=== PATIENT | male | born 1980 | race Two or more races ===

== ENCOUNTER 2017-08-26 13:36 | Emergency (ER) | payer MEDICAID ==
[~2017-08-26] VITALS: Ht 152.4 cm; Wt 54.4 kg
[~2017-08-26 13:36] MED LIST: ACE500T PO; DOCU100C8 PO; LEVO500T21 PO; POLY33504 PO
[2017-08-26 13:47] VITALS: BP 109/66
== END 2017-08-26 15:04 | disposition home or self-care (01) ==
LOC: ER 13:42
DX: Z76.1 Encounter for health supervision and care of foundling (principal); Z46.6 Encounter for fitting and adjustment of urinary device; G80.9 Cerebral palsy, unspecified

== ENCOUNTER 2019-05-08 21:07 | Emergency (ER) | payer MEDICAID ==
[~2019-05-08] VITALS: Ht 154.9 cm; Wt 49.9 kg
[~2019-05-08 21:07] MED LIST changes: -ACE500T PO; +ACET500T43 PO; +CHOL20007 OR; +CYCL1TAB18 PO; -DOCU100C8 PO; -LEVO500T21 PO; +TRAM50TA2 PO
[2019-05-08 22:07] LABS: Basophils # (auto) 0 uL; Basophils % (auto) 0.5 % (0.0-2.0); Eosinophils # (auto) 0 uL; Eosinophils % (auto) 0.4 % (0.0-7.0); Hematocrit 42.6 % (41.0-53.0); Hemoglobin 14.4 g/dL (13.5-17.5); Lymphocytes # (auto) 1.8 uL; Lymphocytes % (auto) 21.1 % (10.0-50.0); Mean Corpuscular Hemoglobin 31.7 pg (28.0-32.0); Mean Corpuscular Hgb Conc. 33.7 g/dL (32.0-36.0); Mean Corpuscular Volume 94.1 fL (80.0-100.0); Monocytes # (auto) 0.4 uL; Monocytes % (auto) 4.1 % (0.0-12.0); Neutrophils # (auto) 6.4 uL; Neutrophils % (auto) 73.9 % (37.0-80.0); Nucleated Red Blood Cells % 0.1 %; Platelet Count (auto) 300 10^3/uL (140-450); Red Blood Cells 4.52 10^6/uL (4.5-5.90); Red Cell Distribution Width 13.9 % (11.8-14.3); White Blood Cell 8.6 10^3/uL (4.4-10.8)
[2019-05-08 22:24] LABS: Albumin 4.1 g/dL (3.4-5.0); Amylase 94 U/L (25-115); Anion Gap 9 (5-15); Blood Urea Nitrogen 18 mg/dL (7-18); Calcium 8.3 mg/dL (8.5-10.1); Carbon Dioxide 23 mmol/L (21-32); Chloride 106 mmol/L (98-107); Glucose 130 mg/dL (74-106); Lipase 132 U/L (73-393); Potassium 3.7 mmol/L (3.5-5.1); Sodium 138 mmol/L (136-145)
[2019-05-08 22:30] LABS: Alanine Aminotransferase 28 U/L (16-61); Alkaline Phosphatase 68 U/L (45-117); Aspartate Aminotransferase 22 U/L (15-37); BUN/Creatinine Ratio 27.3; Bilirubin, Total 0.5 mg/dL (0.2-1.0); GFR African American 173 mL/min; GFR Non-African American 143 mL/min; Total Protein 7.9 g/dL (6.4-8.2)
[2019-05-09 02:35] LABS: Urine Bacteria FEW /hpf (None Seen); Urine Blood 2+ /uL (Negative); Urine Mucus FEW (None Seen); Urine Specific Gravity 1.021 (1.001-1.035); Urine WBC 8 /hpf (0 - 3)
[2019-05-09 03:00] VITALS: BP 104/56
== END 2019-05-09 04:03 | disposition home or self-care (01) ==
LOC: EDBD 21:07 → ER 21:09
DX: K59.00 Constipation, unspecified (principal)
CPT/HCPCS: 36415; 74176; 80053; 81001; 82150; 83690; 84484; 85025

== ENCOUNTER 2020-07-12 14:56 | Emergency (ER) | payer MEDICAID ==
[~2020-07-12] VITALS: Ht 152.4 cm; Wt 65.8 kg
[~2020-07-12 14:56] MED LIST changes: +CYCL10TA6 PO; -CYCL1TAB18 PO
[2020-07-12 22:06] VITALS: BP 100/57
[2020-07-12] MEDS ORDERED: MAGNESIUM CITRATE SOLUTION 300 ML BTL PO ONE (23:30)
== END 2020-07-12 23:19 | disposition home or self-care (01) ==
LOC: ER 14:56
DX: K59.00 Constipation, unspecified (principal); G80.9 Cerebral palsy, unspecified; Z87.440 Personal history of urinary (tract) infections; Z79.899 Other long term (current) drug therapy
CPT/HCPCS: 74176